=== PATIENT | male | born 1985 | race Hispanic/Latino ===

== ENCOUNTER 2018-03-19 10:40 | Outpatient (CLI) | payer OTHER | END 2018-03-19 10:41 | disposition home or self-care (01) | LOC: BICULT 10:40 | PROVIDERS: ATTEND Family Medicine | DX: M79.605 Pain in left leg (principal) ==

== ENCOUNTER 2018-03-28 07:43 | Outpatient (CLI) | payer OTHER ==
--- NOTE | 2018-03-28 10:49 | CT ---
CT ABDOMEN AND PELVIS WITH ORAL AND IV CONTRAST: HISTORY: Left lower quadrant pain with nausea. FINDINGS: The lung bases are clear. There is a 5 mm low density lesion at the anterior aspect of the right lob e of the liver, too small to characterize, but statistically likely to represent a benign finding. T he spleen, pancreas, adrenal glands, and kidneys are normal. No free air, free fluid, or lymphadenop athy is seen in the abdomen or pelvis. The small bowel loops are not abnormally dilated. The append ix is prominent and measures about 6 mm in diameter (upper limits of normal). No pericecal or periap pendiceal inflammatory changes are seen to suggest appendicitis. There is colonic diverticulosis wit hout evidence of diverticulitis. No abnormally loculated fluid collection is seen to suggest abscess formation. Small fat-containing inguinal herniae are seen. IMPRESSION: Colonic diverticulosis without evidence of diverticulitis. POS: [facility]
[2018-03-28] MEDS ORDERED: Iopamidol 370 76% 100 ML VIAL ONE (18:20)
== END 2018-03-28 07:44 | disposition home or self-care (01) ==
LOC: CT 07:43
PROVIDERS: ATTEND Family Medicine
DX: K57.30 Diverticulosis of large intestine without perforation or abscess without bleeding (principal)
CPT/HCPCS: 74177